=== PATIENT | female | born 1950 | race Caucasian/White ===

== ENCOUNTER 2017-11-21 07:28 | Day surgery (SDC) | payer MEDICARE, OTHER ==
[~2017-11-21 07:28] MED LIST: BALANCED SALT SOLN 15 ML OPH IRRIG; LACTATED RINGER'S 1,000 ML IV; LIDOCAINE 3.5% GEL TUBE OPER
[2017-11-21] MEDS: MOXIFLOXACIN 0.5% 3 ML OPH OPER (08:07)
[2017-11-21] MEDS: CYCLOPENTOLATE 1% 2 ML OPH OPER (08:07)
[2017-11-21] MEDS: TETRACAINE 0.5% 4 ML OPH OPER (08:07)
[2017-11-21] MEDS: BROMFENAC SODIUM 1.7 ML OPH DROP OPER (08:08)
[2017-11-21] MEDS ORDERED: LABETALOL HCL 20MG INJ IV (08:30)
[2017-11-21] MEDS ORDERED: morphine (1 MG/ML) 10ML SYRINGE IV (08:30)
[2017-11-21] MEDS ORDERED: hydrALAzine 20 MG INJ IV (08:30)
[2017-11-21] MEDS ORDERED: TOBRAMYCIN/DEXAMETH 3.5 GM OPH OINT (08:40)
[2017-11-21] MEDS ORDERED: LIDOCAINE 1%/EPI 30 ML INJ (08:41)
[2017-11-21] MEDS: TOBRAMYCIN/DEXAMETH 3.5 GM OPH OINT LEFT EYE (08:55)
[2017-11-21] MEDS: LIDOCAINE 1%/EPI 30 ML INJ INJ (08:55)
[2017-11-21] MEDS ORDERED: FENTAnyl 50 MCG/ML VIAL (09:02)
[2017-11-21] MEDS ORDERED: MIDAZOLAM 1 MG/ML 2 ML INJ (09:02)
[2017-11-21] MEDS ORDERED: CEFAZOLIN 1 GM INJ (09:05)
[2017-11-21] MEDS ORDERED: LABETALOL HCL 20MG INJ (09:10)
[2017-11-21] MEDS: ONDANSETRON 4 MG INJ IV (10:19)
[2017-11-21] MEDS: FENTAnyl 50 MCG/ML VIAL IV (10:19)
== END 2017-11-21 11:43 | disposition home or self-care (01) ==
LOC: SDS 07:28
DX: H11.052 Peripheral pterygium, progressive, left eye (principal)
CPT/HCPCS: 65426